=== PATIENT | female | born 1965 | race Caucasian/White ===

== ENCOUNTER 2016-12-01 12:31 | Emergency (ER) | payer OTHER, BC ==
[2016-12-01] MEDS ORDERED: BENZOCAINE/MENTHOL LOZENGE MM STA (13:14)
[2016-12-01] MEDS ORDERED: BENZONATATE 100 MG CAPSULE PO STA (13:14)
[2016-12-01] MEDS ORDERED: BENZONATATE 100 MG CAPSULE PO ONE (13:27)
[2016-12-01] MEDS ORDERED: BENZOCAINE/MENTHOL LOZENGE MM ONE (13:28)
== END 2016-12-01 14:30 | disposition home or self-care (01) ==
DX: J40 Bronchitis, not specified as acute or chronic (principal); M19.90 Unspecified osteoarthritis, unspecified site
CPT/HCPCS: 71020; 87070; 87430; 99283; 99284; A9270

== ENCOUNTER 2017-01-12 12:55 | Outpatient (CLI) | payer OTHER, BC | END 2017-01-12 12:56 | disposition critical access hospital (66) | DX: M54.5 Low back pain (principal) | CPT/HCPCS: A0425; A0427 ==

== ENCOUNTER 2017-01-12 13:15 | Emergency (ER) | payer OTHER, BC ==
[2017-01-12] MEDS ORDERED: HYDROmorphone 1 MG/ML SYRINGE IVP STA (13:55)
[2017-01-12] MEDS ORDERED: HYDROmorphone 1 MG/ML SYRINGE ONE (14:00)
[2017-01-12] MEDS ORDERED: diazePAM INJ 5 MG/ML SYRINGE IVP STA (14:09)
[2017-01-12] MEDS ORDERED: DEXAMETHASONE 10 MG/ML VIAL IVP STA (14:09)
[2017-01-12] MEDS ORDERED: DEXAMETHASONE 10 MG/ML VIAL ONE (14:18)
[2017-01-12] MEDS ORDERED: diazePAM INJ 5 MG/ML SYRINGE ONE (14:18)
[2017-01-12] MEDS ORDERED: KETOROLAC 60 MG/2 ML VIAL IVP STA (14:51)
[2017-01-12] MEDS ORDERED: KETOROLAC 60 MG/2 ML VIAL ONE (14:55)
== END 2017-01-12 15:12 | disposition home or self-care (01) ==
DX: M54.41 Lumbago with sciatica, right side (principal); R03.0 Elevated blood-pressure reading, without diagnosis of hypertension; M19.90 Unspecified osteoarthritis, unspecified site; Z79.82 Long term (current) use of aspirin
CPT/HCPCS: 81003; 96374; 96375; 99284; J1170

== ENCOUNTER 2018-02-16 15:30 | Emergency (ER) | payer OTHER, BC ==
[2018-02-16 15:47] VITALS: BP 136/94
--- NOTE | 2018-02-16 15:53 | ED Physician Documentation ---
PD HPI BACK PAIN - Stated complaint Stated Complaint: BK PX - Chief complaint Chief Complaint: Back Pain - History obtained from History obtained from: Patient - History of Present Illness Timing - onset: Today (has had some mild low back pains the past few days, but awoke from bed this morning with marked pain and spasms, worse with ROM/ bending. No radiation to legs. No abd pain.) Timing - duration: Days (1) Timing - details: Abrupt onset, Still present Location: Lower, Right, Left Quality: Pain, Spasm Associated symptoms: No: Fever, Weakness, Numbness, Incontinent of urine Improves with: No: Rest Worsened by: Movement Contributing factors: No: Lifting, Twisting, Trauma Similar symptoms before: No diagnosis (has this about once a year or so, with marked spasms.) Recently seen: Not recently seen Review of Systems Constitutional: denies: Fever, Chills, Myalgias Throat: denies: Dental pain / toothache, Sore throat Cardiac: denies: Chest pain / pressure, Palpitations Respiratory: denies: Dyspnea, Cough GI: reports: Nausea. 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 - Present Medications Home Medications: Ambulatory Orders Medication Instructions Recorded Confirmed Dexamethasone [Decadron] 4 mg PO DAILY #5 tablet 02/16/18 Lidocaine Patch 5% [Lidoderm Patch] 1 each TOP DAILY PRN #10 patch 02/16/18 Methocarbamol [Robaxin] 500 mg PO Q6H PRN #25 tablet 02/16/18 diazePAM [Diazepam] 5 mg PO TID PRN #20 tablet 02/16/18 - Allergies Allergies/Adverse Reactions: Allergies Allergy/AdvReac Type Severity Reaction Status Date / Time No Known Drug Allergies Allergy Verified 02/16/18 15:39 - Social History Does the pt smoke?: No Smoking Status: Never smoker Does the pt drink ETOH?: No Does the pt have substance abuse?: No - Family History Family history: denies: Aortic aneursym, Aortic dissection - Immunizations Immunizations are current?: Yes - POLST Patient has POLST: No PD ED PE NORMAL - Vitals Vital signs reviewed: Yes - General General: Alert and oriented X 3, Well developed/nourished, Other (appears uncomfortable) - HEENT HEENT: Atraumatic - Cardiac Cardiac: RRR, No murmur - Respiratory Respiratory: Clear bilaterally - Abdomen Abdomen: Soft, Non tender - Female Female : Deferred - Rectal Rectal: Deferred - Back Back: Other (tender lower lumbar area across both sides, worse on the left. Tender to palpation and with ROM. ) - Derm Derm: Normal color, Warm and dry, No rash - Extremities Extremities: Normal ROM s pain - Neuro Neuro: Alert and oriented X 3, No motor deficit, No sensory deficit, Normal speech, Other (normal reflexes at knees. ) Results - Vitals Vitals: Oxygen O2 Source Room air PD MEDICAL DECISION MAKING - ED course Complexity details: reviewed results (marked pain with spasm but otherwise no red flags per se, so treated as muscle spasm. ), re-evaluated patient (feeling better with meds in ED. ), considered differential, d/w patient Departure - Departure Disposition: 01 Home, Self Care Clinical Impression: Spasm of lumbar paraspinous muscle Condition: Stable Record reviewed to determine appropriate education?: Yes Instructions: ED Spasm Back No Trauma Follow-Up: Hesham Robins DO [Primary Care Provider] - Prescriptions: Dexamethasone [Decadron] 4 mg PO DAILY #5 tablet diazePAM [Diazepam] 5 mg PO TID PRN #20 tablet PRN Reason: Spasms Lidocaine Patch 5% [Lidoderm Patch] 1 each TOP DAILY PRN #10 patch PRN Reason: Pain Methocarbamol [Robaxin] 500 mg PO Q6H PRN #25 tablet PRN Reason: Spasms Comments: Gentle stretching stretching and range of motion for the low back heat to the low back will help with spasms as well. Use an anti-inflammatory such as naproxen or ibuprofen twice or 3 times daily for the next several days to week. Decadron steroid anti-inflammatory daily for 5 more days. For more severe spasms she can use diazepam tablet 3 times a day. For not as severe spasms use methocarbamol instead as will be less sedating for you. You can use lidocaine patches over the sore area as directed. Recheck if not improving over the next several days with your primary care. Discharge Date/Time: 02/16/18 17:37
[2018-02-16] MEDS ORDERED: MORPHINE 10 MG/ML VIAL IVP STA (16:04)
[2018-02-16] MEDS ORDERED: LORazepam 2 MG/ML VIAL IVP STA (16:04)
[2018-02-16] MEDS ORDERED: KETOROLAC 60 MG/2 ML VIAL IVP STA (16:04)
== END 2018-02-16 17:37 | disposition home or self-care (01) ==
LOC: ED 15:30
DX: M62.830 Muscle spasm of back (principal)
CPT/HCPCS: 96374; 96375; 99283; J2060

== ENCOUNTER 2019-05-23 14:21 | Outpatient (CLI) | payer OTHER, BC ==
--- NOTE | 2019-05-26 16:40 | Mammography Report ---
Reason: ROUTINE MAMMO Procedure Date: 05/23/2019 Accession Number: [id number] / [id number] Procedure: MGN - Screening Mammo Dig Bilat CPT Code: FULL RESULT: EXAM: Screening Mammo Dig Bilat DATE: 05/23/2019 2:44 PM CLINICAL HISTORY: Routine screening, late childbearing. Benign left breast biopsy TECHNIQUE: (B) - Bilateral CC and MLO views were obtained. COMPARISON: 02/08/2016 PARENCHYMAL PATTERN: (VD) - The breasts demonstrate extremely dense parenchyma bilaterally, limiting the sensitivity of mammography. FINDINGS: No significant interval change. There are no suspicious masses, calcifications, or areas of distortion. IMPRESSION: Negative examination. BI-RADS category 1. RECOMMENDATION: (ANNUAL) - Recommend routine annual screening mammography. BI-RADS CATEGORY: (1) - Negative. STANDARD QUALIFYING STATEMENTS: 1. This examination was not reviewed with the aid of Computer-Aided Detection (CAD). 2. A negative or benign imaging report should not preclude biopsy if clinically suspicious findings are present. 3. Dense breasts may obscure an underlying neoplasm. 4. This examination was reviewed without the aid of 3D breast imaging (tomosynthesis).
== END 2019-05-23 14:22 | disposition home or self-care (01) ==
LOC: DI.N 14:21
PROVIDERS: ATTEND Family Medicine
DX: Z12.31 Encounter for screening mammogram for malignant neoplasm of breast (principal)
CPT/HCPCS: 77067

== ENCOUNTER 2020-06-17 09:22 | Outpatient (CLI) | payer BC ==
--- NOTE | 2020-06-18 08:31 | Mammography Report ---
BILATERAL DIGITAL SCREENING MAMMOGRAM 3D/2D: 06/17/2020 CLINICAL: Family history of breast cancer. Routine screening. Comparison is made to exams dated: 05/23/2019 mammogram, 02/08/2016 mammogram - [facility], and 04/13/2000 mammogram - [facility]. The tissue of both breasts is heterogeneous ly dense. This may lower the sensitivity of mammography. No significant masses, calcifications, or other findings are seen in either breast. There has been no significant interval change. IMPRESSION: NEGATIVE There is no mammographic evidence of malignancy. A 1 year screening mammogram is recommended. This exam was interpreted at Station ID: [id number]. NOTE: For mammograms, a report in lay terms will be sent to the patient. Approximately 15% of breast malignancies will not be visualized mammographically. In the management of a palpable breast mass, a negative mammogram must not discourage biopsy of a clinically suspicious lesion. Electronically Signed By: Mar sauer/americo:06/17/2020 16:01:36 ACR BI-RADS Category 1: Negative 3341F PARENCHYMAL PATTERN: (D) - The breast(s) demonstrate(s) heterogeneously dense fibroglandular zia pierson. BI-RADS CATEGORY: (1) - 1 RECOMMENDATION: (ANNUAL) - Recommend routine annual screening mammography. [id number] 1 year screening LATERALITY: (B)
== END 2020-06-17 09:23 | disposition home or self-care (01) ==
LOC: DI.N 09:22
PROVIDERS: ATTEND Family Medicine
DX: Z12.31 Encounter for screening mammogram for malignant neoplasm of breast (principal); Z80.3 Family history of malignant neoplasm of breast
CPT/HCPCS: 77063; 77067

== ENCOUNTER 2020-06-17 11:23 | Outpatient (CLI) | payer BC ==
--- NOTE | 2020-06-17 13:01 | XRAY Report ---
PROCEDURE: Finger(s) RT INDICATIONS: RT THUMB TENDINITIS TECHNIQUE: AP hand, 2 views of the right first finger(s) acquired. COMPARISON: None FINDINGS: Bones: No fractures or dislocations. No suspicious bony lesions. Soft tissues: No suspicious soft tissue calcifications. IMPRESSION: No fracture. No osseous lesion. If there is continued clinical concern for pathology, then repeat st[place] in film radiographs (7-10 days) or advanced imaging (CT, MR, bone scan) should be considered for furt her evaluation. Reviewed by: Kalie Burt MD, PhD on 06/17/2020 1:00 PM PDT Approved by: Kalie Burt MD, PhD on 06/17/2020 1:00 PM PDT Station ID: [id number]
== END 2020-06-17 11:24 | disposition home or self-care (01) ==
LOC: DI 11:23
PROVIDERS: ATTEND Family Medicine
DX: M67.843 Other specified disorders of tendon, right hand (principal)
CPT/HCPCS: 73140

== ENCOUNTER 2021-03-02 07:23 | Emergency (ER) | payer BC ==
--- NOTE | 2021-03-02 07:45 | ED Physician Documentation ---
PD HPI BACK PAIN - Stated complaint Stated Complaint: BACK PX - Chief complaint Chief Complaint: Back Pain - History obtained from History obtained from: Patient - History of Present Illness Timing - onset: How many days ago (3) Timing - duration: Days (3) Timing - details: Gradual onset, Still present (much worse today) Location: Lower, Left (really low at sacral area and not even at lumbar.) Quality: Pain, Spasm, Aching. No: Tearing Associated symptoms: Other (no rash nor skin tenderness). No: Fever, Weakness, Numbness, Incontinent of urine Improves with: Position (standing up is most comfortable) Worsened by: Other (lying flat or on side) Contributing factors: Other (she was staying with friends in social gathering and slept on air mattress and uncomfortable sleeping.) Similar symptoms before: Diagnosis (intermittent low back pain, not consistent. No prior sciatica. No prior shingles.) Review of Systems Constitutional: denies: Fever, Chills Nose: denies: Rhinorrhea / runny nose, Congestion Throat: denies: Sore throat Cardiac: denies: Chest pain / pressure Respiratory: denies: Cough GI: reports: Nausea (at times when pain is worst.). 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 - Present Medications Home Medications: Ambulatory Orders Medication Instructions Recorded Confirmed Lidocaine Patch 5% [Lidoderm Patch] 1 each TOP DAILY PRN #10 patch 02/16/18 dexAMETHasone [Decadron] 4 mg PO DAILY #5 tablet 02/16/18 diazePAM [Diazepam] 5 mg PO TID PRN #20 tablet 02/16/18 methocarbamoL [Robaxin] 500 mg PO Q6H PRN #25 tablet 02/16/18 dexAMETHasone [Decadron] 4 mg PO DAILY #5 tablet 03/02/21 methocarbamoL [Robaxin] 500 mg PO Q6H PRN #30 tablet 03/02/21 oxyCODONE [Roxicodone] 5 mg PO Q4-6H PRN #16 tablet 03/02/21 - Allergies Allergies/Adverse Reactions: Allergies Allergy/AdvReac Type Severity Reaction Status Date / Time No Known Drug Allergies Allergy Verified 03/02/21 07:37 - Social History Does the pt smoke?: No Smoking Status: Never smoker Does the pt drink ETOH?: No Does the pt have substance abuse?: No - Immunizations Immunizations are current?: Yes - POLST Patient has POLST: No PD ED PE NORMAL - Vitals Vital signs reviewed: Yes - General General: Alert and oriented X 3, Well developed/nourished, Other (appears very uncomfortable. Standing bedside and leaning torso onto the cart. States hurts more with lying down. ) - Back Back: No CVA TTP, No spinal TTP, Other (tender left lower back at sacral/left SI area with focal tenderness. No redness nor sores. ) - Derm Derm: Normal color, Warm and dry, No rash, Other (no skin tenderness. ) - Extremities Extremities: No edema, No calf tenderness / cord - Neuro Neuro: Alert and oriented X 3, No motor deficit, No sensory deficit Results - Vitals Vitals: Oxygen O2 Source Room air PD MEDICAL DECISION MAKING - ED course Complexity details: considered differential (no red flags to suggest need for testing/imaging. Has tender spot at muscle/SI joint but declines trigger point injection. Did not want IM meds either (does not like needles and "just hurting, and don't need pain of shots too"). She does start to get improvement with PO meds. No skin tenderness/rash), d/w patient Departure - Departure Disposition: 01 Home, Self Care Clinical Impression: Sacroiliac strain Qualifiers: Encounter type: initial encounter Qualified Code(s): S39.012A - Strain of muscle, fascia and tendon of lower back, initial encounter Acute low back pain Qualifiers: Back pain laterality: left Sciatica presence: unspecified whether sciatica present Qualified Code(s): M54.5 - Low back pain Condition: Stable Record reviewed to determine appropriate education?: Yes Instructions: ED Sacroiliitis Follow-Up: Hesham Robins DO [Primary Care Provider] - Prescriptions: dexAMETHasone [Decadron] 4 mg PO DAILY #5 tablet methocarbamoL [Robaxin] 500 mg PO Q6H PRN #30 tablet PRN Reason: Spasms oxyCODONE [Roxicodone] 5 mg PO Q4-6H PRN #16 tablet PRN Reason: Pain Comments: Heat and stretching for the low back and sacroiliac area to reduce spasming and stiffness. You can use the diclofenac topically that you have at home. Add dexamethasone oral steroid for inflammation daily for the next several days. Methocarbamol muscle relaxant for spasms and stiffness. To that add Tylenol 500 mg to 650mg 4 times a day for pain and oxycodone every 4-6 hours if needed for worse pain. I am prescribing a short course of narcotic pain medication for you. These are potentially dangerous and addictive medications that should be used carefully. These medications may constipate you. Take an kddm-[id number] stool softener such as docusate twice daily with plenty of water while taking these medications. If you go 24 hours without a bowel movement, take [id number]-bcr-[id number] MiraLAX, per package instructions. Do not drink or drive while taking these medications. If you received narcotic or sedating medications while in the emergency department do not drive for 24 hours. Store this medication in a safe, secure place and out of reach of children. It is a violation of federal law to give or sell this medication to another person or to use in a manner other than prescribed. The ED will not refill narcotic prescriptions, including prescriptions lost or stolen. You can dispose of unwanted medications at the [facility]'s office or at several pharmacies such as [facility]. Discharge Date/Time: 03/02/21 09:10
[2021-03-02] MEDS ORDERED: oxyCODONE 5 MG TABLET PO STA (07:54)
[2021-03-02] MEDS ORDERED: CHERRY SYRUP 10 ML UDC PO ONE (07:54)
[2021-03-02] MEDS ORDERED: NAPROXEN 250 MG TABLET PO STA (07:54)
[2021-03-02] MEDS ORDERED: methocarbamoL 500 MG TABLET PO STA (07:54)
[2021-03-02] MEDS ORDERED: DEXAMETHASONE 10 MG/ML VIAL PO STA (07:54)
[2021-03-02 09:12] VITALS: BP 148/90
== END 2021-03-02 09:10 | disposition home or self-care (01) ==
LOC: ED 07:23
DX: S39.012A Strain of muscle, fascia and tendon of lower back, initial encounter (principal); X58.XXXA Exposure to other specified factors, initial encounter
CPT/HCPCS: 99283; 99284; A9270

== ENCOUNTER 2021-03-07 20:36 | Emergency (ER) | payer BC ==
[2021-03-07] MEDS ORDERED: KETOROLAC 60 MG/2 ML VIAL IM STA (21:47)
[2021-03-07] MEDS ORDERED: HYDROmorphone 1 MG/ML CARPUJECT IM STA (22:16)
[2021-03-07] MEDS ORDERED: ONDANSETRON ODT 4 MG TABLET TL STA (22:16)
--- NOTE | 2021-03-07 23:27 | ED Physician Documentation ---
PD HPI BACK PAIN - Stated complaint Stated Complaint: BACK PAIN - Chief complaint Chief Complaint: Ext Problem - History obtained from History obtained from: Patient, Friend - History of Present Illness Timing - onset: How many days ago (10) Timing - duration: Days (10) Timing - details: Abrupt onset, Still present Location: Lower, Left Quality: Pain, Spasm, Sharp, Similar to prior episodes Associated symptoms: No: Fever, Weakness, Numbness, Incontinent of urine, Unable to urinate, Hematuria, Incontinent of stool Improves with: Rest, Position, Meds Worsened by: Movement Contributing factors: Lifting, Twisting Similar symptoms before: Diagnosis (lumbar strain) Recently seen: Emergency Dept - Additional information Additional information: 55-year-old female was seen in the emergency department 3 days ago with a diagnosis of sciatica on the left side and she reports that she had some relief of the pain during her visit and subsequently has lost control of her pain she has been taking pain medication she has been into follow-up with her doctor has been prescribed more pain medication and she has not had adequate relief with these medications. She is coming this evening with intractable pain. Review of Systems Constitutional: denies: Fever Eyes: denies: Decreased vision Ears: denies: Ear pain Nose: denies: Congestion Throat: denies: Sore throat Respiratory: denies: Cough GI: denies: Vomiting, Diarrhea : denies: Dysuria, Frequency Skin: denies: Rash Musculoskeletal: reports: Back pain. denies: Neck pain, Extremity pain Neurologic: reports: Numbness (to left anterior calf). 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 - Present Medications Home Medications: Ambulatory Orders Medication Instructions Recorded Confirmed Lidocaine Patch 5% [Lidoderm Patch] 1 each TOP DAILY PRN #10 patch 02/16/18 03/07/21 diazePAM [Diazepam] 5 mg PO TID PRN #20 tablet 02/16/18 03/07/21 methocarbamoL [Robaxin] 500 mg PO Q6H PRN #25 tablet 02/16/18 03/07/21 dexAMETHasone [Decadron] 4 mg PO DAILY #5 tablet 03/02/21 03/07/21 oxyCODONE [Roxicodone] 5 mg PO Q4-6H PRN #16 tablet 03/02/21 03/07/21 Cyclobenzaprine [Flexeril] 10 mg PO TID PRN #20 tablet 03/07/21 - Allergies Allergies/Adverse Reactions: Allergies Allergy/AdvReac Type Severity Reaction Status Date / Time No Known Drug Allergies Allergy Verified 03/07/21 20:39 - Social History Does the pt smoke?: No Smoking Status: Never smoker Does the pt drink ETOH?: No Does the pt have substance abuse?: No - Immunizations Immunizations are current?: Yes - POLST Patient has POLST: No PD ED PE NORMAL - Vitals Vital signs reviewed: Yes - General General: Alert and oriented X 3, Well developed/nourished, Other (appears to be in pain standing in the room bent at the waist hanging on to the counter. ) - HEENT HEENT: Atraumatic, PERRL, EOMI - Respiratory Respiratory: No respiratory distress - Back Back: No CVA TTP, No spinal TTP, Other (tenderness to the paraspinous muscles of the lower lumbar spine on the left side. ) - Derm Derm: Normal color, Warm and dry, No rash - Extremities Extremities: No deformity, No edema - Neuro Neuro: Alert and oriented X 3, manager facility 2-12 intact, No motor deficit, No sensory deficit, Normal speech Eye Opening: Spontaneous Motor: Obeys Commands Verbal: Oriented GCS Score: 15 - Psych Psych: Normal mood, Normal affect Results - Vitals Vitals: Vital Signs - 24 hr 03/07/21 03/07/21 20:39 23:27 Temperature 36.5 C 36.6 C Heart Rate 100 78 Respiratory 18 18 Rate Blood Pressure 172/82 H 129/86 H O2 Saturation 97 100 Oxygen O2 Source Room air - Rads (name of study) L/S spine CT Radiology: Prelim report reviewed (Impression: No acute fractures or dislocations. 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 Moderate bilateral foraminal stenosis at this level. It ended treatment incompletely imaged intermediate attenuation hepatic mass. 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 She has had adequate treatment through the emergency department and she appears to be failing this. She is given Toradol and Dilaudid for pain control which does help. I have reviewed with her her medications she is taking oxycodone I have asked her to take this with Tylenol and to supplement the this with 800 mg of ibuprofen to be taken no more often than 8 hours. I found the patient's failure of management on her first visit to the emergency department enough to concern me for obtaining imaging and a CT of the lumbar spine was obtained mainly to look at the SI joints as this appeared to be the area of most concern. There were incidental findings on the study concerning the patient's liver and she indicated to me that this has been brought up to her before. Departure - Departure Disposition: 01 Home, Self Care Clinical Impression: Spasm of lumbar paraspinous muscle Condition: Stable Instructions: ED Sprain Strain Lumbar Follow-Up: Hesham Robins DO [Primary Care Provider] - Prescriptions: Cyclobenzaprine [Flexeril] 10 mg PO TID PRN #20 tablet PRN Reason: Spasms Comments: Today on your CT scan there is a finding that needs further evaluation involving her liver. Follow-up with Dr. Robins for further imaging. Discharge Date/Time: 03/07/21 23:47
[2021-03-07 23:28] VITALS: BP 129/86
--- NOTE | 2021-03-08 08:24 | CT Report ---
PROCEDURE: LUMBAR SPINE WO INDICATIONS: left sacroilliac pain severe TECHNIQUE: Noncontrast 3 mm thick sections acquired from the T12 level to the sacrum. Sagittal and coronal refo rmats were constructed. For radiation dose reduction, the following was used: automated exposure co ntrol, adjustment of mA and/or kV according to patient size. COMPARISON: None. FINDINGS: Image quality: Excellent. Bones: There is normal bony alignment. No acute vertebral body compression fractures. No suspiciou s lytic or blastic bony lesions. Central spinal caliber is of normal overall caliber. Chronic appear ing bilateral pars defects are noted at L5 level with grade 1 anterolisthesis of L5 on S1 measures 5 mm in distance. Osteoarthritic changes are noted in bilateral sacroiliac joints without ankylosis or bony erosion. T12-L1: Normal in appearance. L1-L2: Mild degenerative endplate changes are seen. There is suggestion of mild broad-based disc b ulge without significant canal stenosis or neuroforamina narrowing. L2-L3: Mild degenerative endplate changes are seen without significant canal stenosis or neural fo raminal narrowing. L3-L4: Decreased intervertebral disc space and degenerative endplate changes are noted at L3-4 leve l. Broad-based disc bulge and bilateral facet arthrosis is seen causing mild to moderate central long l stenosis and mild bilateral neural foraminal narrowing. L4-L5: There is broad-based disc bulge and bilateral facet arthrosis. Mild central canal stenosis i s seen. Mild bilateral neural foraminal narrowing is noted. L5-S1: Degenerative endplate changes and decreased intervertebral disc space is seen. No significan t disc bulge, canal stenosis or neural foraminal narrowing. Soft tissues: No retroperitoneal masses or hematomas. Visualized aorta is normal in caliber. Ill-d efined hypodense structure involving posterior segment of right hepatic lobe is seen partially visual ized on this study and measures up to 7.3 x 6.7 cm in size series 9 image 164. IMPRESSION: 1. No lumbar spine fracture or dislocation. 2. Mild degenerative disc disease throughout lumbar spine more prominent at L3-4 level as above. 3. Bilateral pars defects at L5 level with grade 1 anterolisthesis of L5 on S1. 4. Hypodense lesion involving posterior segment of right hepatic lobe and is of indeterminant etiolog y. Dedicated CT or MRI of abdomen can be done for further evaluation of this region. No discrepancies. Reviewed by: Dennys Foreman MD on 03/08/2021 8:22 AM PDT Approved by: Dennys Foreman MD on 03/08/2021 8:22 AM PDT Station ID: [id number]
== END 2021-03-07 23:47 | disposition home or self-care (01) ==
LOC: ED 20:36
DX: M62.830 Muscle spasm of back (principal)
CPT/HCPCS: 72131; 96372; 99284; J1170; Q0162

== ENCOUNTER 2024-03-04 11:16 | Outpatient (CLI) | payer BC ==
--- NOTE | 2024-03-05 09:35 | XRAY Report ---
PROCEDURE: Foot 3+V LT (Weight Bearing) INDICATIONS: LEFT FOOT PAIN TECHNIQUE: 3 views of the foot were acquired. COMPARISON: None. FINDINGS: Bones: No acute fractures or dislocations. Question old first distal phalangeal tuft fracture. No nevarez spicious bony lesions. Mild degenerative joint disease, most pronounced at the first tarsometatarsal joint and the first metatarsophalangeal joint. Soft tissues: No tibiotalar joint effusion. Achilles tendon appears normal. IMPRESSION: 1. No acute bony abnormality. 2. Mild degenerative joint disease. 3. Question old first distal phalangeal tuft fracture. Reviewed by: Elba Suggs MD on 03/05/2024 9:34 AM PDT Approved by: Elba Suggs MD on 03/05/2024 9:34 AM PDT Station ID: [id number]
== END 2024-03-04 11:17 | disposition home or self-care (01) ==
LOC: DI 11:16
PROVIDERS: ATTEND Podiatrist
DX: M19.072 Primary osteoarthritis, left ankle and foot (principal)

== ENCOUNTER 2024-03-15 07:47 | Outpatient (CLI) | payer BC ==
--- NOTE | 2024-03-17 22:45 | MRI Report ---
Foot LT WO CLINICAL HISTORY: 58 years of age, Female, FOOT PAIN. COMPARISON: None Technique: Multisequence, multiplanar MRI of the left] foot was performed without contrast. FINDINGS: Tendons: There is mild tendinosis of the flexor tendon with likely low-grade tear at the base of the third proximal phalanx, with associated subcutaneous edema. Full-thickness tear of the plantar plate at the third metatarsophalangeal joint. Muscles: Normal muscle bulk and signal intensity. Ligaments: Lisfranc and radial collateral ligaments are intact. Interosseous spaces: Mild first and third intermetatarsal bursitis. No Evans's neuroma. Plantar Fascia: Normal. Osseous and Cartilaginous: Moderate multifocal degenerative changes of the midfoot with associated nevarez bchondral marrow edema, involving the intermetatarsal articulation, most pronounced at the lateral cu neiform and the calcaneal articulation. Mild subchondral marrow edema of both the tibial and hallucal sesamoid, favoring degenerative. Miscellaneous: IMPRESSION: 1.Mild tendinosis with likely low-grade tear of the flexor tendon at the base of the third proximal p halanx. Full-thickness tear of the plantar plate at the third metatarsophalangeal joint. 2.Moderate degenerative changes of the midfoot. Reviewed by: Isaura Pride MD on 03/17/2024 10:44 PM PDT Approved by: Isaura Pride MD on 03/17/2024 10:44 PM PDT Station ID: [id number]
== END 2024-03-15 07:48 | disposition home or self-care (01) ==
LOC: DI 07:47
PROVIDERS: ATTEND Podiatrist
DX: S96.012A Strain of muscle and tendon of long flexor muscle of toe at ankle and foot level, left foot, initial encounter (principal); M67.874 Other specified disorders of tendon, left ankle and foot; M19.072 Primary osteoarthritis, left ankle and foot